=== PATIENT | female | born 1980 | race Hispanic/Latino ===

== ENCOUNTER 2024-02-06 20:42 | Observation (INO) | payer OTHER, SELFPAY ==
[2024-02-06] MEDS ORDERED: metroNIDAZOLE 500 MG TAB ONE (21:47)
[2024-02-06] MEDS ORDERED: Doxycycline 100 MG VIAL ONE (21:47)
[2024-02-06] MEDS ORDERED: cefTRIAXone (ROCEPHIN) 1 GM VIAL ONE (21:48)
[2024-02-06] MEDS ORDERED: Ketorolac Tromethamine 30 MG (1 mL) VIAL ONE (23:41)
[2024-02-07 00:33] VITALS: BMI 36.7
[2024-02-07] MEDS ORDERED: Acetaminophen 325 MG TAB PO PRN (00:42)
[2024-02-07] MEDS ORDERED: Ibuprofen 800 MG TAB PO PRN (00:48)
[2024-02-07 04:15] LABS: #Basophils 0.03 10x3/uL (0.0-0.2); #Eosinphils 0.06 10x3/uL (0.0-0.5); #Monocytes 0.81 10x3/uL (0.0-1.1); #Neutrophils 7.45 10x3/uL (1.5-8.4); %Basophils 0.3 % (0.0-2.0); %Eosinophils 0.6 % (0.0-6.0); %Lymphocytes 17.4 % (18.0-47.0); %Neutrophils 73.5 % (40.0-75.0); Hematocrit 36.1 % (34.9-44.5); Hemoglobin 13.1 g/dL (12.0-15.5); Mean Corpuscular HGB CONC 36.3 g/dL (32.0-36.0); Mean Corpuscular Hemoglobin 29.7 pg (27.0-33.0); Mean Corpuscular Volume 81.9 fL (81.6-98.3); Mean Platelet Volume 10.7 fL (7.4-10.4); Platelet Count 306 10x3/uL (150-450); RBC Distribution Width 12.2 % (11.5-14.5); Red Blood Cell (RBC) Count 4.41 10x6/uL (3.90-5.03); White Blood Cell (WBC) Count 10.1 10x3/uL (3.5-10.5)
[2024-02-07 04:16] LABS: Syphilis Antibody Nonreactive (Nonreactive); Syphilis Antibody Index 0.09 S/CO (<1.00 Non-Reactive)
[2024-02-07 04:18] LABS: HIV (1/2) Antibody/Antigen Non-Reactive (NonReactive)
[2024-02-07] MEDS: metroNIDAZOLE 500 MG TAB PO SCH (07:47)
[2024-02-07] MEDS: Doxycycline 100 MG CAP PO SCH (07:47)
[2024-02-07] MEDS: metroNIDAZOLE 500 MG TAB ONE (08:53)
[2024-02-07] MEDS: Doxycycline 100 MG CAP ONE (08:53)
[2024-02-07] MEDS: Bisacodyl 5 MG TAB PO SCH (13:49)
[2024-02-07] MEDS: Polyethylene Glycol 3350 17 GM Packet PO SCH (13:49)
[2024-02-07] MEDS: cefTRIAXone\\ROCEPHIN 1 GM in Sodium Chloride 0.9% 100 ML IVPB SCH (21:05)
[2024-02-08 07:38] VITALS: BP 115/73; TEMP 97.9
[2024-02-08] MEDS: Polyethylene Glycol 3350 17 GM Packet PO SCH (09:11)
[2024-02-08] MEDS: Bisacodyl 5 MG TAB PO SCH (09:11)
[2024-02-09 09:17] LABS: Chlam.trachomatis by PCR,Urine DETECTED (NotDetected); GC N.gonorrhoeae PCR,UrineVOID Not Detected (NotDetected)
== END 2024-02-08 10:04 | disposition home or self-care (01) ==
LOC: CSHERS 20:42 → CSHPP 22:27 → UNDOADMOB 02-07 00:15
PROVIDERS: ADMIT Obstetrics & Gynecology; ATTEND Obstetrics & Gynecology
DX: N83.209 Unspecified ovarian cyst, unspecified side (principal); D72.829 Elevated white blood cell count, unspecified; Z72.51 High risk heterosexual behavior; Z86.19 Personal history of other infectious and parasitic diseases
CPT/HCPCS: 76856; 85025; 86780; 87389; 87491; 87591; 87661; 96367; G0378; J0696; J1885; J3490